=== PATIENT | male | born 1970 | race Caucasian/White ===

== ENCOUNTER → 2023-07-30 07:03 | Outpatient (REF) | payer OTHER, SELFPAY | LOC: HWRAD 07:03 | PROVIDERS: ATTENDING PHYSICIAN Nurse Practitioner Family | DX: R10.32 Left lower quadrant pain (principal) | CPT/HCPCS: 76705 ==

== ENCOUNTER → 2024-03-27 08:50 | Outpatient (REF) | payer OTHER, SELFPAY | LOC: DHSLP 08:50 | PROVIDERS: ATTENDING PHYSICIAN Nurse Practitioner Family | DX: G47.33 Obstructive sleep apnea (adult) (pediatric) (principal) | CPT/HCPCS: 95810 ==